=== PATIENT | female | born 1960 | race Caucasian/White ===

== ENCOUNTER 2019-07-20 07:46 | Emergency (ER) | payer OTHER, SELFPAY ==
[2019-07-20 07:49] VITALS: BP 180/92; PULSE 66; RESP 17; TEMP 36.4; O2SAT 100; BMI 23.8
--- NOTE | 2019-07-20 08:15 | ED.DCSUM_ITS ---
- ER Visit Summary Date of Service: 07/20/19 Chief Complaint: Dizziness and nausea History of Present Illness: The patient is a 59 F who presents with dizziness and nausea that began this morning when she woke up. Patient describes her dizziness is a spinning sensation but also states she feels like she might pass out. Patient states her dizziness is worse with movement of her head. Patient states that improves when she closes her eyes. Patient denies any tinnitus or hearing changes. Patient states she did vomit 1 time this morning. Patient denies any hematemesis or coffee-ground emesis. Patient denies any diarrhea. Patient denies any abdominal pain. Patient denies any headaches. Patient d enies any prior episodes of similar symptoms. Physical Examination: Vital signs are stable. Patient is afebrile. Patient is in no acute distress. Pupils are equal, round, and reactive to light bilaterally. Extraocular muscles are intact. There is some nystagmus with right lateral gaze. Tympanic membranes are clear bilaterally. Oral mucosa is pink and moist. Neck is supple. Trachea is midline. There is no JVD. Heart was regular rate and rhythm. Lungs are clear and equal bilaterally. Abdomen is soft and nontender. Cranial nerves II through XII are intact. There are no focal motor or sensory deficits noted. Patient had a positive Alon-Hallpike maneuver. Test Results: CBC and comprehensive metabolic profile were within normal limits. CT scan of the brain was obtained. There is no acute intracranial abnormality. There is a mild old ischemic change in the left parietal lobe. This was interpreted by the radiologist. Emergency Department Course and Treatment: Patient was given IV fluids and Zofran here. Patient was given a dose of Valium orally here. Patient is feeling better on reevaluation. Patient was given a prescription for some oral Valium to take as needed. Patient was instructed to drink plenty of fluids. Patient was in a referral to Dr. Hough who is on the list for unassigned patients to follow-up with as a primary care physician in 5 to 7 days. Patient understood and was agreeable with the plan. All questions were answered. Disposition: Discharge home Impression: Vertigo This note was generated with Mod[employer]oth[employer] software. It may contain incorrect words, spelling, and punctuation that were not noted in review of the chart prior to signing ED Disposition - Plan for ED Patient: Disposition: Home or Assisted Living Diagnosis: Vertigo Instructions: VERTIGO, Unspecified Prescriptions: Diazepam [Valium] 2 mg PO TID PRN PRN #10 tab PRN Reason: Vertigo Prescription Printed Referrals: Care Physician,No Primary [Primary Care Provider] - Kiley Hough MD [COURTESY STAFF PHYSICIAN] - 5-7 Days
--- NOTE | 2019-07-20 08:18 | CT_ITS ---
STUDY: CT BRAIN WITHOUT CONTRAST REASON FOR EXAM: Female, 59 years old. PT STATED DIZZINESS TODAY WITH N/V RADIATION DOSAGE (If Supplied By Facility): CTDIvol = ( 60.81 ) mGy, DLP = ( 998.67 ) mGycm TECHNIQUE: Transaxial CT imaging of the brain was performed without administration of intravenous contrast material. Individualized dose optimization techniques were used for this CT. COMPARISON: No relevant priors. FINDINGS: Normal soft tissue structures. Normal calvarium. Normal size ventricles and extra-axial spaces for the patient''s age. There is a 5.9 mm rounded hypodensity in the left parietal lobe at the junction of the chatman and white matter. This may represent an old ischemic insult. A similar. Hypodensity is seen in the ervin radiata of the left parietal lobe adjacent to the left lateral ventricle. Normal basal ganglia and thalami. Normal brainstem. Normal cerebellum. There is no intracranial hemorrhage. There are no findings of an acute ischemic infarction. Normal visualized paranasal sinuses. CT/Brain/Head without Contrast IMPRESSION: Findings suggestive of a mild old ischemic changes seen in the left parietal lobe. Electronically Signed: Pawan Mckenzie, at 9:33 EST , Service support ,
[2019-07-20 08:25] LABS: Absolute Lymphocyte Count 1.59 X10^3/uL (0.83-4.51); Absolute Neutrophil Count 5.5 X10^3/uL (2.0-7.7); Basophil# 0.06 X10^3/uL; Basophil% 0.8 % (0-1); Eosinophil# 0.22 X10^3/uL; Eosinophils% 2.8 % (0-5); Hematocrit 43.7 % (37-47); Hemoglobin 14.2 g/dL (12.0-15.0); Lymphocyte # 1.59 X10^3/ul (4.0); Lymphocyte % 19.9 % (19-41); Mean Corp Hgb Conc 32.5 g/dL (32-36); Mean Corpuscular Hgb 29.6 pg (27.0-32.0); Mean Corpuscular Volume 91.2 fL (81-99); Mean Platelet Vol. 10.2 fl (6.2-12.0); Monocyte# 0.57 X10^3/uL; Monocyte% 7.1 % (0-10); NRBC Flagged by Analyzer 0 % (0-5); Neutrophil # 5.53 X10^3/uL (2.7-7.7); Neutrophil % 69.3 % (47-70); Platelet Count 344 K/mm3 (150-450); RBC Distribution Width CV 12.3 % (11.6-14.6); RBC Distribution Width SD 41.2 fl (35.1-43.9); Red Blood Count 4.79 M/mm3 (4.2-5.4)
[2019-07-20 08:44] LABS: ALB/GLOB Ratio 1.1 RATIO (0.9-2.4); AST(SGOT) 25 U/L (15-37); Alanine Aminotransfer ALT/SGPT 26 U/L (13-56); Alkaline Phosphatase 110 U/L (45-117); Anion Gap 5 (5-15); BUN 14 mg/dL (7-18); BUN/Creat Ratio 15.5 RATIO (10-20); Calcium,Total 9.2 mg/dL (8.5-10.1); Chloride 107 mmol/L (98-107); EST Glomerular Filtration Rate 67 mL/min (>60); Est Glom Filt Rate - Afr Amer 81 mL/min (>60); Estimated Creatinine Clearance 59.07 ml/min; Globulin 3.7 g/dL (2.2-4.2); Glucose 104 mg/dL (74-106); Potassium 3.5 mmol/L (3.5-5.1); Protein, Total 7.7 g/dL (6.4-8.2); Sodium Level 141 mmol/L (136-145)
[2019-07-20] MEDS: diazePAM 5 MG Tablet 2.5 MG PO ×2 (08:47→10:32)
[2019-07-20] MEDS: Ondansetron 4 MG/2 ML Vial IV ×2 (08:47→10:32)
[2019-07-20 10:21] VITALS: BP 153/67; PULSE 63; RESP 17; O2SAT 100
[2019-07-20 13:25] VITALS: BP 159/72; PULSE 74; RESP 20; O2SAT 98
== END 2019-07-20 13:27 | disposition home or self-care (01) ==
PROVIDERS: Emergency Provider Emergency Medicine
DX: R42 Dizziness and giddiness (principal); R11.2 Nausea with vomiting, unspecified; M54.2 Cervicalgia
CPT/HCPCS: 70450; 80053; 85025; 96374; 96376; 99285; J7040; A4216; J2405

== ENCOUNTER → 2023-11-14 | Outpatient (CLI) | payer OTHER, SELFPAY ==
--- NOTE | 2023-11-14 | ASPOS_PTH ---
PATIENT: YOGESH LOUIS LOC: [facility] U#:[id number] AGE/SX: 63/F ROOM: RE11/14/[address]: Dr. Wu Damon MD : 1960 BED: DIS: 11/14/2023 SPEC #: [id number] RECD: 11/14/23 10:30 STATUS: FELIZ TALBOT #: [id number] KEILY: 11/14/23 00:[address]: Wu Damon DEPT: CYTOLOGY RECD BY: Neal Ragland ENTERED: 11/14/23 11:23 SP TYPE: ASP HERE OTHR DR: No Primary Care Phys Tissues: Neck, NOS Procedures: Surgery Specimen Level IV Cytology Other Fine Needle Asp on Site HEADER OPERATION: Fine needle aspiration, right neck mass PRE-OP DIAGNOSIS: Right neck mass TISSUE SUBMITTED: Smears and fluid for cytology, sample for flow DIAGNOSIS CYTOLOGY Fine needle aspiration, right neck mass (smears and cellblock): Consistent with B-cell lymphoma. See comment. 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 A high-grade lymphoma cannot be ruled out. An incisional/excisional biopsy is recommended for definitive classification. Clinical correlation is suggested. Immunohistochemistry ([id number]) supports the above diagnosis. A fine needle aspiration was performed and the specimen is evaluated at the time of FNA by Dr. Dawson. 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 CYTOLOGY STUDY Slides are reviewed. CYTOLOGY GROSS Received is 0.2 ml of reddish labeled with the patient's name, and designated Right neck mass. 3 imprints and 3 Paps are made from the submitted fluid and the rest is added to CytoLyt for cell block preparation. Submitted for cytology study. / 11/14/23 TC:0 CPT: 12169,77028,97581,45139 ADDENDUM ADDENDUM ADDENDUM ADDENDUM ADDENDUM ADDENDUM ADDENDUM ADDENDUM ADDENDUM ADDENDUM ADDENDUM ADDENDUM ADDENDUM ADDENDUM ADDENDUM ADDENDUM ADDENDUM ADDENDUM ADDENDUM ADDENDUM ADDENDUM ADDENDUM ADDENDUM ADDENDUM ADDENDUM 02/09/2024 09:44 ADDENDUM 02/09/2024 09:44 ADDENDUM 02/09/2024 09:44 ADDENDUM 02/09/2024 09:44 ADDENDUM 02/09/2024 09:44 This addendum is added to incorporate an outside pathology consultation report. The case was examined at [facility] (#[id number]) and the following diagnosis was rendered. Fine needle aspiration, right neck mass: Atypical lymphocytic proliferation. See comment. COMMENT: We concur with the diagnostic interpretation of the referring institution. Diagnostic material is best seen in the aspirate smears. The cellblock is paucicellular. Immunostains performed on the cell block at the outside institution show the atypical lymphocytes immunoreactive to CD20, CD10, CD25, CD79, and BCL-2. They are negative for pancreatin, CD138, CD3, CD5, CD15, CD30, and BCL-6. The findings raise the possibility of a B-cell lymphoma of follicle center origin. Additional tissue sampling, such as a excisional biopsy is recommended for a definitive evaluation. Dr. Kristan Qureshi (Hematopathology) has reviewed select slides of this case and concurs. Please correlate with clinical and imaging findings. The above diagnosis is in compliance with the 5th edition of the World Health Organization Classification of Haematolymphoid Tumours: Lymphoid Neoplasms. Leukemia 35, 3551-2036 (2021) Please see complete above mentioned consultation report in EMR
--- NOTE | 2023-11-14 | IMM_PTH ---
PATIENT: YOGESH LOUIS LOC: [facility] U#:[id number] AGE/SX: 63/F ROOM: RE11/14/[address]: Dr. Wu Damon MD : 1960 BED: DIS: 11/14/2023 SPEC #: [id number] RECD: 11/16/23 10:14 STATUS: FELIZ REQ #: [id number] KEILY: 11/14/23 00:[address]: Wu Damon DEPT: IMMUNOHISTOCHEMISTRY RECD BY: Bladimir Guthrie ENTERED: 11/16/23 10:15 SP TYPE: IMMUNO OTHR DR: No Primary Care Phys Tissues: Neck, NOS Procedures: BCL-2 (add) BCL-6 (add) CD10 (add) CD138 (add) CD15 (add) CD20 (add) CD23 (add) CD3 (add) CD30 (add) CD45 (add) CD5 (add) CD79A (add) Pankeratin (initial) PHYSICIAN & [address] [address] SPECIMEN INFORMATION: Tissue Source: Fine needle aspiration, Right neck mass Clinical Info: Right neck mass Specimen Number: [id number] CPT code: 40147,63081v96 METHODOLOGY: Deparaffinized sections of prefer/formalin-fixed tissue or PAP/DQ stained slides are incubated with monoclonal/polyclonal antibodies/oligonucleotide probes. Localization is made via biotin free immunoperoxidase method. Appropriate controls are performed and reacted as expected. Results on target cell population are indicated in the following table: RESULTS: ANTIBODY / CLONE RESULT AE1-3 (AE1/AE3/PCK26) negative CD3 (PS1) positive, focal CD5 (SP10) positive, focal CD20 (L26) positive, focal CD45 (RP2/18) positive CD79a (11E3) positive, focal CD138 (B-A38) negative CD10 (56C6) positive CD15 (MMA) negative CD23 (1B12) negative CD30 (Bart-H2) negative BCL-2 (bcl-2/100/D5) positive, focal BCL-6 (CA962R/A8) negative These tests were developed and their performance characteristics determined by [facility]. They may not have been cleared or approved by the U.S. Food and Drug Administration. The FDA has determined that such clearance or approval is not necessary. The above immunohistochemical/dualISH markers are ordered and reviewed by the Pathologist. INTERPRETATION: Fine needle aspiration, right neck mass: Atypical B-cell lymphocyte population is present. 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 Correlation with FLOW analysis is necessary. RODOLFO/mr 11/16/2023
== END | disposition home or self-care (01) ==
LOC: LAB 09:37
PROVIDERS: Referring Provider Otolaryngology; Visit Provider Otolaryngology
DX: R22.1 Localized swelling, mass and lump, neck (principal)
CPT/HCPCS: 10021; 88161; 88305; 88341; 88342

== ENCOUNTER → 2023-12-27 | Outpatient (CLI) | payer OTHER, SELFPAY ==
--- NOTE | 2023-12-27 07:56 | EKG12_ITS ---
Test Reason : PRE OP Blood Pressure : / mmHG Vent. Rate : 071 BPM Atrial Rate : 071 BPM P-R Int : 144 ms QRS Dur : 082 ms QT Int : 386 ms P-R-T Axes : 081 066 070 degrees QTc Int : 419 ms Normal sinus rhythm Low voltage QRS Septal infarct , age undetermined Abnormal ECG Confirmed by Barry Yeboah ([id number]), assignment desk editor SOCORRO MCCLURE ([id number]) on 12/28/2023 9:26:29 AM Referred By: Anjel Damon Confirmed By:Barry Yeboah
[2023-12-27 08:38] LABS: Anion Gap 3 (5-15); BUN 16 mg/dL (7-18); BUN/Creat Ratio 18.3 RATIO (10-20); Calcium,Total 9.4 mg/dL (8.5-10.1); Chloride 109 mmol/L (98-107); Creatinine, Serum 0.87 mg/dL (0.55-1.02); EST Glomerular Filtration Rate 69 mL/min (>60); Est Glom Filt Rate - Afr Amer 84 mL/min (>60); Glucose 95 mg/dL (74-106); Sodium Level 140 mmol/L (136-145)
[2023-12-27 09:58] LABS: Hemoglobin 14.5 g/dL (12.0-15.0); Mean Corpuscular Hgb 31.3 pg (27.0-32.0); Mean Platelet Vol. 10.8 fl (6.2-12.0); Platelet Count 341 K/mm3 (150-450); RBC Distribution Width CV 12.9 % (11.6-14.6); RBC Distribution Width SD 44.7 fl (35.1-43.9); Red Blood Count 4.63 M/mm3 (4.2-5.4); White Blood Count 5.9 K/mm3 (4.4-11.0)
== END | disposition home or self-care (01) ==
PROVIDERS: Referring Provider Otolaryngology; Visit Provider Otolaryngology
DX: Z01.818 Encounter for other preprocedural examination (principal)
CPT/HCPCS: 36415; 80048; 85027; 93005